=== PATIENT | male | born 1945 | race Caucasian/White ===

== ENCOUNTER 2017-03-26 18:20 | Emergency (ER) | payer BC ==
[2017-03-26 18:58] VITALS: BP 118/62
--- NOTE | 2017-03-26 19:10 | UC ---
Respiratory Complaint HPI - HPI Summary HPI Summary: Pt presents with for sinus and chest congestion. He tells me that yesterday he developed sinus congestion, body aches, fatigue, and felt feverish. Today he started with a ST, chest congestion, and dry cough. He is diabetic and says that when he "gets sick things travel fast". He is from [place] and is traveling back home tomorrow. He denies SOB, chest pain, abdominal pain, N/V/D/C. - History of Current Complaint Chief Complaint: UCGeneralIllness Stated Complaint: CONGESTION Time Seen by Provider: 03/26/17 19:04 Hx Obtained From: Patient Onset/Duration: Sudden Onset Severity Initially: Moderate Severity Currently: Moderate Character: Cough: Nonproductive - Allergies/Home Medications Allergies/Adverse Reactions: Allergies Allergy/AdvReac Type Severity Reaction Status Date / Time Cephalosporins Allergy Hives Verified 03/26/17 18:58 Home Medications: Home Medications Aspirin [Aspirin 81 MG TAB] 81 mg PO DAILY 03/26/17 [History Confirmed 03/26/17] Atorvastatin* [Lipitor*] 80 mg PO 1700 03/26/17 [History Confirmed 03/26/17] Docusate CAP* [Colace Cap*] 100 mg PO DAILY 03/26/17 [History Confirmed 03/26/17 ] Hydrochlorothiazide TAB* [Hydrodiuril TAB*] 25 mg PO DAILY 03/26/17 [History Confirmed 03/26/17] Insulin GLARGINE(*) [Lantus(*)] 58 units SUBCUT Q24H 03/26/17 [History Confirmed 03/26/17] Levothyroxine TAB* [Synthroid TAB*] 75 mcg PO 0800 03/26/17 [History Confirmed 03/26/17] Lisinopril TAB* [Prinivil TAB*] 40 mg PO DAILY 03/26/17 [History Confirmed 03/26] Pioglitazone TAB* [Actos TAB*] 45 mg PO DAILY 03/26/17 [History Confirmed ] Psyllium LIANA* [Metamucil LIANA*] 1 pkt PO BID 03/26/17 [History Confirmed 03/26/17 ] PMH/Surg Hx/FS Hx/Imm Hx Previously Healthy: Yes Endocrine History: Diabetes, Dyslipidemia Cardiovascular History: Cardiac Disease, Hypertension - Surgical History Surgical History: None - Social History Occupation: Retired Lives: With Family Alcohol Use: None Substance Use Type: None Smoking Status (MU): Never Smoked Tobacco - Immunization History Most Recent Influenza Vaccination: fall 2016 Review of Systems Constitutional: Fever Skin: Negative Eyes: Negative ENT: Sore Throat, Nasal Discharge, Sinus Congestion, Sinus Pain/Tenderness Respiratory: Cough Cardiovascular: Negative Gastrointestinal: Negative Neurological: Negative Psychological: Negative All Other Systems Reviewed And Are Negative: Yes Physical Exam Triage Information Reviewed: Yes Appearance: Well-Appearing, Well-Nourished Vital Signs: Initial Vital Signs Temp 99.6 F 03/26/17 18:55 Pulse 100 03/26/17 18:55 Resp 16 03/26/17 18:55 BP 118/62 03/26/17 18:55 Pulse Ox 97 03/26/17 18:55 Vital Signs Reviewed: Yes Eyes: Positive: Conjunctiva Clear. Negative: Conjunctiva Inflamed, Discharge ENT: Positive: Hearing grossly normal, Pharynx normal, Nasal congestion, Nasal drainage, TMs normal, Sinus tenderness. Negative: Pharyngeal erythema, TM bulging, TM dull, TM red, Tonsillar swelling, Tonsillar exudate Neck: Positive: Supple, Nontender, No Lymphadenopathy Respiratory: Positive: Chest non-tender, Lungs clear, Normal breath sounds, No respiratory distress, No accessory muscle use Cardiovascular: Positive: RRR, No Murmur, Pulses Normal UC Diagnostic Evaluation - Laboratory O2 Sat by Pulse Oximetry: 97 Respiratory Course/Dx - Course Course Of Treatment: Sinusitis. He is unsure if he has ever taken Amoxicillin before. Given his reaction to Cephalosporins - will rx for Zpak - Differential Dx/Diagnosis Differential Diagnosis/HQI/PQRI: CHF, Influenza, Lower Resp Infection, Sinusitis Provider Diagnoses: Sinusitis Discharge - Discharge Plan Condition: Stable Disposition: HOME Prescriptions: Azithromycin TAB* [Zithromax TAB (Z-LIANA) 250 mg #6 tabs] 2 tab PO .TODAY, THEN 1 DAILY #1 liana Patient Education Materials: Sinusitis (ED) Additional Instructions: 1) Rest and drink plenty of water 2) May take plain Mucinex over the counter twice a day as a decongestant If you develop a fever, SOB, chest pain, new or worsening symptoms - please call your PCP or go to the ED.
[2017-03-26] MEDS ORDERED: Azithromycin TAB* 250 MG PO ONE (19:15)
[2017-03-26] MEDS ORDERED: Azithromycin TAB* 250 MG ONE (19:17)
== END 2017-03-26 19:21 | disposition home or self-care (01) ==
LOC: UCEAST 18:20
DX: J32.9 Chronic sinusitis, unspecified (principal); E11.9 Type 2 diabetes mellitus without complications; Z79.4 Long term (current) use of insulin; E78.5 Hyperlipidemia, unspecified; I10 Essential (primary) hypertension; I51.9 Heart disease, unspecified
CPT/HCPCS: 99202; A9270-GY; G0463